=== PATIENT | male | born 1965 | race Caucasian/White ===

== ENCOUNTER → 2017-04-04 | Outpatient (CLI) | payer OTHER ==
--- NOTE | ~2017-04-04 | MY26 ---
[facility] A Service of [facility] & [facility] RADIOLOGY TEXT RESULTS PATIENT: DELFINO RENE LOCATION: [facility] : [birth year] UNIT #: [id number] AGE: [address]: Mumtaz Pfeiffer MD SEX: M ORDER DR: [id number] [facility] [address] [place], [place] [address] [id number] O MR#: [id number] Acc #: [id number] NAME: DELFINO RENE : 1965 SEX: M STUDY DATE/TIME: 04/04/2017 13:36 UNIT: [facility] ROOM: STUDY DESCRIPTION: [facility] DI[facility]NOSTIC W/ CAD BILAT Attending Physician: Mumtaz Pfeiffer M.D. Ordering Physician: Corrina Not Listed Primary Care Physician: Carmelo Collier M.D. MEDICAL IMAGING REPORT This report is preliminary unless electronic signature is present EXAM Bilateral digital diagnostic mammogram with CAD device 04/04/2017 HISTORY Palpable nodule behind left nipple for 1-1/2 months. FINDINGS Bilateral digital diagnostic mammogram was performed in the craniocaudal projection and left mediolateral oblique projection, demonstrating flame-shaped soft tissue in the subareolar left breast only, characteristic of gynecomastia. No mass was seen. No suspicious cluster of microcalcifications. The films have been reviewed by an FDA-approved CAD device. Ultrasound of the periareolar left breast was then performed confirming gynecomastia. IMPRESSION Findings characteristic of left gynecomastia. BIRADS: 2 Benign finding. Dictated by... Farzad Dunn M.D. THIS IS AN ELECTRONICALLY VERIFIED REPORT Farzad Dunn M.D. at 04/07/2017 10:14 AM KIRSTIN/micheal TD: 04/04/2017 18:10 JOB #: [id number] MEDICAL IMAGING REPORT Page 1 of 1 COPY
--- NOTE | ~2017-04-04 | US24 ---
[facility] A Service of [facility] & [facility] RADIOLOGY TEXT RESULTS PATIENT: DELFINO RENE LOCATION: [facility] : [birth year] UNIT #: [id number] AGE: [address]: Mumtaz Pfeiffer MD SEX: M ORDER DR: [id number] [facility] [address] [place], [place] [address] [id number] O MR#: [id number] Acc #: [id number] NAME: DELFINO RENE : 1965 SEX: M STUDY DATE/TIME: 04/04/2017 13:44 UNIT: [facility] ROOM: STUDY DESCRIPTION: US Breast Unilateral Attending Physician: Mumtaz Pfeiffer M.D. Ordering Physician: Mumtaz Pfeiffer M.D. Primary Care Physician: Carmelo Collier M.D. MEDICAL IMAGING REPORT This report is preliminary unless electronic signature is present EXAM Left breast ultrasound 04/04/2017 HISTORY Palpable abnormality subareolar left breast for 1.5 months. FINDINGS Ultrasound of the subareolar left breast was performed at the site of palpated abnormality demonstrating flame-shaped fibroglandular tissue characteristic of gynecomastia. No mass is seen. IMPRESSION Findings characteristic of left gynecomastia. BIRADS II BIRADS: 2 - Benign finding Dictated by... Farzad Dunn M.D. THIS IS AN ELECTRONICALLY VERIFIED REPORT Farzad Dunn M.D. at 04/07/2017 10:14 AM KIRSTIN/keenan TD: 04/04/2017 18:05 JOB #: [id number] MEDICAL IMAGING REPORT Page 1 of 1 COPY
== END | disposition home or self-care (01) ==
LOC: CWCC 09:00
DX: N62 Hypertrophy of breast (principal)
CPT/HCPCS: 76641; G0204